=== PATIENT | male | born 1960 | race Two or more races ===

== ENCOUNTER 2017-08-20 12:39 | Emergency (ER) | payer BC ==
[~2017-08-20] VITALS: Ht 175.3 cm; Wt 83.7 kg
[2017-08-20] MEDS ORDERED: METOCLOPRAMIDE 5 MG/ML, 2ML IVPush ONE (13:30)
[2017-08-20] MEDS ORDERED: DEXAMETHASONE 4 MG/ML, 1ML IVPush ONE (13:30)
[2017-08-20] MEDS ORDERED: KETOROLAC 30 MG/1 ML IVPush ONE (13:30)
[2017-08-20] MEDS ORDERED: SODIUM CHLORIDE FLUSH 10ML SYR IVF ONE (13:30)
[2017-08-20] MEDS ORDERED: DIPHENHYDRAMINE 50 MG/ML, 1ML IVPush ONE (13:30)
[2017-08-20] MEDS ORDERED: SODIUM CHLORIDE 0.9% 1,000ML IVBOLUS ONE (13:30)
[2017-08-20] MEDS ORDERED: SUMATRIPTAN 6MG/0.5ML SQ ONE ×2 (13:30→13:41)
[2017-08-20] MEDS ORDERED: DEXAMETHASONE 4 MG/ML, 5ML ONE (13:41)
[2017-08-20] MEDS ORDERED: KETOROLAC 30 MG/1 ML ONE (13:41)
[2017-08-20] MEDS ORDERED: METOCLOPRAMIDE 5 MG/ML, 2ML ONE (13:41)
[2017-08-20] MEDS ORDERED: LORazepam 2 MG/ML, 1ML ONE (14:13)
[2017-08-20] MEDS ORDERED: LORazepam 2 MG/ML, 1ML IVPush ONE (14:30)
[2017-08-20 15:58] VITALS: BP 109/79
== END 2017-08-20 16:02 | disposition home or self-care (01) ==
LOC: ED 16:00
DX: G43.109 Migraine with aura, not intractable, without status migrainosus (principal)
CPT/HCPCS: 93005; 96361; 96372; 96374; 96375; 99284; J1100; J1885; J2060; J2765; J3030; J7030